=== PATIENT | female | born 1930 | race Caucasian/White ===

== ENCOUNTER → 2017-03-09 17:00 | Outpatient (CLI) | payer MEDICARE, BC | END | disposition home or self-care (01) | LOC: D.MAMMO 09:30 | DX: Z12.31 Encounter for screening mammogram for malignant neoplasm of breast (principal) ==

== ENCOUNTER → 2018-03-22 10:40 | Outpatient (CLI) | payer MEDICARE, BC | END | disposition home or self-care (01) | LOC: D.MAMMO 10:40 | DX: Z12.31 Encounter for screening mammogram for malignant neoplasm of breast (principal) ==

== ENCOUNTER 2018-05-16 08:21 | Inpatient (IN) | payer MEDICARE, BC ==
[~2018-05-16] VITALS: Ht 160 cm; Wt 52.2 kg
--- NOTE | ~2018-05-16 | OP ---
PATIENT NAME: GLORIA HARVEY MEDICAL RECORD: [id number] :34 LOCATION:[id number] ADMISSION DATE:05/16/18 SURGEON: MISSAEL ESPARZA MD DATE OF OPERATION: 05/17/2018 PREOPERATIVE DIAGNOSES: 1. Comminuted distal radius fracture of the right wrist. 2. Acute carpal tunnel syndrome. POSTOPERATIVE DIAGNOSES: 1. Comminuted distal radius fracture of the right wrist. 2. Acute carpal tunnel syndrome. PROCEDURES: Open reduction internal fixation of comminuted distal radius fracture of the right wrist and carpal tunnel release. FUSING FURNACE LOADER: MIKEY Garcia INTRAOPERATIVE COMPLICATIONS: None. SUMMARY OF PATHOLOGIC FINDINGS: Consistent with preoperative diagnosis, the patient had comminuted distal radius fracture. IMPLANTS USED: [place] VariAx short distal radius plate. OPERATIVE SUMMARY IN DETAIL: After obtaining the appropriate preoperative orthopedic surgery consent as well as anesthetic consultation, evaluation, and clearance, the patient was brought to the operating room and placed on the operating table in supine position. After general laryngeal mask airway was administered, tourniquet was placed on the proximal aspect of the right upper extremity. Right upper extremity was then prepped and draped in routine sterile fashion. Reduction maneuver was performed and seen on fluoroscopy to be adequate. The arm was elevated and exsanguinated and tourniquet was inflated to 250 mmHg. The volar approach of Derrick was utilized into the carpal canal. The incision was taken down to the level of transverse carpal ligament, which was identified and incised. After completely releasing the transverse carpal ligament, the FCR was then utilized. Dissection was carried down to both side of the median nerve. The median nerve along with the flexor tendons of the wrist were retracted laterally. The muscle was gently peeled back off the fracture. Fracture was reduced as seen on fluoroscopy. The plate was introduced. The plate was provisionally pinned in the appropriate position with a combination of both locking and compression screws, utilized to stabilize the fracture. After all screws were put into place, final AP and lateral views were taken and submitted for radiologist review. The wound was copiously irrigated and closed with 2-0 Vicryl followed by 4-0 Prolene. Sterile dressings were applied. Tourniquet was deflated. A volar splint was applied. The patient was awakened and taken to recovery room in stable condition. All final needle and sponge counts were correct. TRANSINT:[id number] Voice Confirmation ID: [id number] DOCUMENT ID: [id number] OPERATIVE REPORT [id number] GLORIA HARVEY MD, MISSAEL WALLS at 1340 CC: [id number] DICTATION DATE: 05/17/18 164 DIRECTOR OF MATERNITY SERVICES: 05/17/18 194 ADM IN [place] [id number] [place] [address]
--- NOTE | ~2018-05-16 | DS ---
PATIENT:GLORIA HARVEY :34 MEDICAL RECORD: [id number] DISCHARGE SUMMARY ADMISSION DATE: 05/16/18 DISCHARGE DATE: 05/20/18 DATE OF ADMISSION: 05/16/2018 DATE OF DISCHARGE: 05/20/2018 CONDITION ON DISCHARGE: Stable. ADMITTING DIAGNOSES: Status post fall with superficial laceration right side of the face with multiple right-sided facial fractures, right radial fracture, hip pain, right shoulder pain. History of hypothyroidism, hyperlipidemia and history of anemia. DISCHARGE DIAGNOSES: Fractured lower end of the right radius, fracture of the skull and facial bones to the right side, zygomatic arch fracture, hypothyroidism, hyperlipidemia, hypertension. HOSPITAL COURSE: Ms. Harvey is an 87-year-old female who apparently was in her normal state of health until the a.m. on the morning of her fall. She stated that last thing she remembered her alarm had gone off at 6:15 that morning, she was preparing to go to [employer], next thing she noticed that she had extreme pain in the right hand as well as the right side of the face. She phoned her son who presented to the Emergency Room with the patient. PHYSICAL EXAMINATION: VITAL SIGNS: She was afebrile. Her vital signs were stable. GENERAL: She was alert. She was oriented times 3. HEENT: She had superficial laceration over the orbital rim of the right eye. Pupils were equal, round and reactive to light. Extraocular movements were intact. She had ecchymosis over the right forehead as well as the right cheek. Her nasal cavity, oral cavity, oropharynx were clear. HEENT was otherwise unremarkable. NECK: Supple. There is no adenopathy. HEART: Regular rate. LUNGS: Clear. EXTREMITIES: She had ecchymosis over the anterior portion of the right shoulder as well as mild displacement of the right wrist, hand safety patrol officer was 5/5. LABORATORY DATA: The patient had facial CT showing orbital floor fracture as well as a right lateral orbital wall fracture, fracture of the right zygomatic arch, fracture of the anterior and posterior wall of the maxillary sinus, right maxillary hemosinus. CT of the head showed no intracranial abnormality, frontal lobe atrophy was noted. Small vessel ischemia and periventricular white matter changes were present. Right hip showed no fracture. Right wrist showed a distal right radial fracture. The patient was admitted for pain control. Ear, nose and throat consult was obtained, but apparently the ear, nose and throat physician was on vacation. Orthopedic consultation was obtained. The patient did undergo open reduction internal fixation of comminuted distal radial fracture of the right wrist and carpal tunnel release. It was felt that the patient would need ear, nose and throat evaluation and so therefore on 05/20/2018, she was discharged. DISCHARGE SUMMARY REPORT [id number] GLORIA HARVEY DISCHARGE MEDICATIONS: She was discharged on Percocet 10/325 one every 4 hours p.r.n. severe pain, aspirin 81 mg once a day, ferrous sulfate 325 one p.o. every day, Xanax 0.5 mg p.o. b.i.d., Lasix 20 mg once a day, levothyroxine 50 mcg once a day, isosorbide mononitrate 30 mg daily, lovastatin 40 mg once a day, Restoril 15 mg p.o. at bedtime. DISCHARGE INSTRUCTIONS: The patient was discharged to see Dr. RANJEET Hernandez on the at 9:30, [address] [facility], [address]. She would follow up with me in 10-14 days. She would call for followup with Dr. Bailey regarding her open reduction internal fixation of the wrist fracture. Her activities were ad verito. It was felt that the patient would need correction/rehab placement. TRANSINT:[id number] Voice Confirmation ID: [id number] DOCUMENT ID: [id number] MISSAEL BARRIOS MD at 1414 CC: [id number] DICTATION DATE: 06/13/18 141 BURRING WHEEL OPERATOR: 06/14/18 1209 DIS IN 05/20/18 [address] [address] [place] [address]
--- NOTE | ~2018-05-16 | HP ---
PATIENT: GLORIA HARVEY MEDICAL RECORD: [id number] ACCOUNT: [id number] LOCATION:D.[facility] : 34 ADMISSION DATE: 05/16/18 HISTORY AND PHYSICAL EXAMINATION DATE OF ADMISSION: 05/16/2018. CHIEF COMPLAINT: Facial pain. HISTORY OF PRESENT ILLNESS: The patient is an 87-year-old female who apparently was in her normal state of health until this a.m., apparently she states the last thing she remembers is that her alarm had gone off at 06:15. She was preparing to go to [employer], next thing she noticed she was having extreme pain in her hands as well as right side of her face. She did phone her son who presented the patient to the Emergency Room for evaluation. PAST MEDICAL HISTORY: Significant that she has had history of hypothyroidism, vitamin D deficiency, hyperlipidemia, history of anemia, chronic back pain. The patient is a . She has had breast surgery, appendectomy, back surgeries on 3 occasions, hysterectomy. FAMILY HISTORY: Sister has hypertension. Parents history is unobtainable. ALLERGIES: No known drug allergies. MEDICATIONS: Include alprazolam 0.5 one p.o. b.i.d., aspirin 81 mg once a day, ferrous sulfate 325 one p.o. b.i.d., Lasix 20 mg 1 p.o. every day. She is on [place] 10/325 one every 6 hours p.r.n. severe low back pain, isosorbide mononitrate ER 30 mg 1 p.o. every day, lovastatin 40 mg once a day, Mirapex 0.125 p.o. at bedtime, Premarin 0.625 applied intravaginally twice a week, Synthroid 50 mcg once a day, Restoril 15 mg p.o. at bedtime p.r.n. insomnia, vitamin D3 2000 international units daily. SOCIAL HISTORY: The patient is retired banker. She educated through the 12th grade. She is , does live alone. She denies any ethanol or tobacco use or abuse. REVIEW OF SYSTEMS: CONSTITUTIONAL: The patient does report having pain in the right side of her face. She also reports having pain in the right wrist, pain in right shoulder, pain in the right hip area, low back pain. GENERAL: She is currently alert. She is oriented times 3. She is accompanied by her son. HEENT: Head, she does have superficial laceration over the orbital rim to the right. Eyes: Pupils are equal, round, and reactive to light. Her extraocular movements are intact. She does have ecchymoses over the right forehead as well as the right cheek. Her nasal cavity, oral cavity, oropharynx clear. NECK: Supple. There is no adenopathy. HEART: Has a regular rate. LUNGS: Clear. EXTREMITIES: The patient does have ecchymosis over the anterior portion of the right shoulder as well as mild displacement of the right wrist. Hand changeover operator strength is 5/5. CARDIOVASCULAR: Regular rate and rhythm without murmurs, gallops, or rubs. LUNGS: Clear. HISTORY AND PHYSICAL [id number] GLORIA HARVEY ABDOMEN: Soft, bowel sounds are positive. MUSCULOSKELETAL: The patient does have some pain on the right posterior buttocks. She is able to flex and extend the right leg. DIAGNOSTIC DATA: The patient had multiple radiology procedures performed. She had facial CT showing orbital floor as well as right lateral orbital wall fracture, fracture of the right zygomatic arch, fracture of the anterior and posterior green of the maxillary sinuses, and right maxillary hemosinus. CT of the head shows no acute intracranial abnormalities, frontal lobe atrophy is seen, small vessel ischemic and periventricular white matter changes are present. Right hip x-ray is showing no acute fractures. Right wrist shows a distal right radial fracture. Chest x-ray shows no cardiomegaly, no active infiltrates. LABORATORY DATA: White count 11.4, hemoglobin 11.6, hematocrit 35.5, and her platelets are 186. Her chemistries pending at the present time. Urinalysis was not obtained. ASSESSMENT: Status post fall with superficial laceration of the right side of the face with multiple right-sided facial fractures, right radial fracture, hip pain, right shoulder pain, history of hypothyroidism, hyperlipidemia, and history of anemia. PLAN: The patient will be admitted. She will be placed in a splint. Orthopedic consultation will be obtained. Also, the patient will be evaluated by ear, nose, and throat for possible surgical intervention. She has no problems with extraocular movements at the present time, visualization is normal. We will continue to evaluate this. TRANSINT:[id number] Voice Confirmation ID: [id number] DOCUMENT ID: [id number] MISSAEL BARRIOS MD at 1511 CC: [id number] DICTATION DATE: 05/16/18 1016 FARMWORKER: 05/16/18 1132 ADM IN [address] [id number] [place] [address]
[2018-05-16] MEDS ORDERED: BAYER CHEWABLE81 MG PO (08:30)
[2018-05-16] MEDS ORDERED: LEVOXYL50 MCG PO (08:31)
[2018-05-16] MEDS ORDERED: FUROSEMIDE20 MG PO (08:31)
[2018-05-16] MEDS ORDERED: FERROUS SULFAT325 MG PO (08:31)
[2018-05-16] MEDS ORDERED: XANAX0.5 MG PO (08:31)
[2018-05-16] MEDS ORDERED: LOVASTATIN40 MG PO (08:32)
[2018-05-16] MEDS ORDERED: RESTORIL15 MG PO (08:32)
[2018-05-16] MEDS ORDERED: ISOSORBIDE MONO30 M1 PO (08:32)
[2018-05-16] MEDS ORDERED: VITAMIN D31000 UNI2 PO (08:32)
[2018-05-16] MEDS ORDERED: NORCO 7.5/325 T1 TA1 PO (08:33)
[2018-05-16 09:50] LABS: BASOPHILS 0.3 % (0-2); EOSINOPHILS 2.5 % (0-7); HEMATOCRIT 35.5 % (36.0-48.0); HEMOGLOBIN 11.6 g/dL (12-16); IMMATURE GRANULOCYTES 0.5 % (0-5); LYMPHOCYTES 8.4 % (15-50); MCH 32.2 pg (26.0-34.0); MCHC 32.7 g/dL (31.0-37.0); MCV 98.6 fL (80.0-100.0); MEAN PLATELET VOLUME 8.7 fL (7.4-10.4); MONOCYTES 11.1 % (2-11); NEUTROPHILS 77.2 % (40-80); PLATELET COUNT 186 10x3/uL (130-400); RDW 12.3 % (11.5-14.5); WBC 11.4 10x3/uL (4.8-10.8)
[2018-05-16 10:32] LABS: ALKALINE PHOSPHATASE 62 U/L (46-116); ALT (SGPT) 31 U/L (10-68); BILIRUBIN - TOTAL 0.44 mg/dL (0.2-1.3); CALC OSMOLALITY 277 mosm/kg (275-300); CALCIUM 9.4 mg/dL (8.5-10.1); CHLORIDE - SERUM 99 mmol/L (98-107); CREATINE KINASE 123 UL (21-215); CREATININE - SERUM 1.4 mg/dL (0.6-1.3); GLUCOSE 129 mg/dL (74-106); LIPASE 209 U/L (73-393); POTASSIUM - SERUM 3.7 mmol/L (3.5-5.1); PRO BNP 131 pg/mL (0-450); PROTEIN - SERUM 7.8 g/dL (6.4-8.2); SODIUM 137 mmol/L (136-145); TROPONIN-I < 0.017 ng/mL (0.000-0.060); UREA NITROGEN 19 mg/dL (7-18); eGFR NON AFRICAN AMERICAN 38 mL/min (90-120)
[2018-05-16 14:56] LABS: APPEARANCE CLEAR (CLEAR); BACTERIA FEW /hpf (NONE SEEN); BILIRUBIN NEGATIVE (NEGATIVE); COLOR YELLOW (YELLOW); EPITHELIAL CELLS OCC /hpf (0-5); GLUCOSE NEGATIVE (NEGATIVE); KETONE SMALL mg/dL (NEGATIVE); NITRITE NEGATIVE (NEGATIVE); PH 6.5 (5.0-6.0); PROTEIN NEGATIVE (NEGATIVE); RED CELLS - URINE 0-5 /hpf (0-5); UROBILINOGEN NORMAL (NORMAL); WHITE CELLS - URINE 0-5 /hpf (0-5)
[2018-05-16 16:58] VITALS: BP 188/60
[2018-05-16 17:07] VITALS: BMI 20.4
[2018-05-16 21:39] VITALS: BP 138/60
[2018-05-16 23:42] VITALS: BP 132/68
[2018-05-17 04:10] VITALS: BP 149/58
[2018-05-17 04:37] LABS: BASOPHILS 0.3 % (0-2); EOSINOPHILS 8.7 % (0-7); HEMATOCRIT 32.7 % (36.0-48.0); HEMOGLOBIN 10.6 g/dL (12-16); IMMATURE GRANULOCYTES 0.3 % (0-5); LYMPHOCYTES 20.7 % (15-50); MCH 31.8 pg (26.0-34.0); MCHC 32.4 g/dL (31.0-37.0); MCV 98.2 fL (80.0-100.0); MEAN PLATELET VOLUME 8.8 fL (7.4-10.4); MONOCYTES 15.9 % (2-11); NEUTROPHILS 54.1 % (40-80); PLATELET COUNT 183 10x3/uL (130-400); RBC 3.33 10x6/uL (4.00-5.40); RDW 12.5 % (11.5-14.5)
[2018-05-17 04:38] LABS: WBC 7.2 10x3/uL (4.8-10.8)
[2018-05-17 04:52] LABS: ANION GAP 11.8 mmol/L (8-16); CALCIUM 9.2 mg/dL (8.5-10.1); CREATININE - SERUM 1.3 mg/dL (0.6-1.3); POTASSIUM - SERUM 3.8 mmol/L (3.5-5.1)
[2018-05-17 09:53] VITALS: BP 164/75
[2018-05-17 12:21] VITALS: Ht 160 cm; Wt 52.2 kg
[2018-05-17 12:40] VITALS: BP 130/78
[2018-05-17 18:13] VITALS: BP 159/53
[2018-05-17 23:26] VITALS: BP 111/46
[2018-05-18 03:56] VITALS: BP 151/61
[2018-05-18 04:31] LABS: BASOPHILS 0.1 % (0-2); EOSINOPHILS 0 % (0-7); HEMATOCRIT 34.2 % (36.0-48.0); HEMOGLOBIN 11.1 g/dL (12-16); IMMATURE GRANULOCYTES 0.3 % (0-5); LYMPHOCYTES 9.1 % (15-50); MCH 31.9 pg (26.0-34.0); MCHC 32.5 g/dL (31.0-37.0); MCV 98.3 fL (80.0-100.0); MONOCYTES 9.9 % (2-11); NEUTROPHILS 80.6 % (40-80); PLATELET COUNT 156 10x3/uL (130-400); RBC 3.48 10x6/uL (4.00-5.40); RDW 12.5 % (11.5-14.5); WBC 7.8 10x3/uL (4.8-10.8)
[2018-05-18 04:42] LABS: ANION GAP 11.8 mmol/L (8-16); CALCIUM 8.9 mg/dL (8.5-10.1); CARBON DIOXIDE 26.1 mmol/L (21.0-32.0); CREATININE - SERUM 1.4 mg/dL (0.6-1.3); POTASSIUM - SERUM 3.9 mmol/L (3.5-5.1)
[2018-05-18 08:37] VITALS: BP 129/66
[2018-05-18 12:45] VITALS: BP 150/58
[2018-05-18 16:43] VITALS: BP 154/46
[2018-05-18 19:51] VITALS: BP 101/52
[2018-05-19 00:10] VITALS: BP 128/53
[2018-05-19 04:40] LABS: HEMATOCRIT 27.7 % (36.0-48.0); HEMOGLOBIN 9.2 g/dL (12-16)
[2018-05-19 04:45] VITALS: BP 130/51
[2018-05-19 08:17] VITALS: BP 155/77
[2018-05-19 11:47] VITALS: BP 143/56
[2018-05-19 15:41] VITALS: BP 141/67
[2018-05-19 21:58] VITALS: BP 169/67
[2018-05-20 00:27] VITALS: BP 104/59
[2018-05-20 04:48] LABS: HEMATOCRIT 30.3 % (36.0-48.0); HEMOGLOBIN 9.8 g/dL (12-16)
[2018-05-20 05:39] VITALS: BP 168/70
[2018-05-20] MEDS ORDERED: PERCOCET 10/3251 TA1 PO (07:49)
== END 2018-05-20 08:01 | DRG 511 ==
LOC: D.ER 08:21 → D.EDHOLD 09:48 → D.MS 09:48
PROVIDERS: Family Medicine; Orthopaedic Surgery
PROC: 0PSH04Z Reposition Right Radius with Internal Fixation Device, Open Approach (ICD-10-PCS; principal; 2018-05-20)
PROC: 01N50ZZ Release Median Nerve, Open Approach (ICD-10-PCS; 2018-05-20)
DX: S52.501A Unspecified fracture of the lower end of right radius, initial encounter for closed fracture (principal); S02.81XA Fracture of other specified skull and facial bones, right side, initial encounter for closed fracture; S02.40EA Zygomatic fracture, right side, initial encounter for closed fracture; W19.XXXA Unspecified fall, initial encounter; G56.01 Carpal tunnel syndrome, right upper limb; R53.1 Weakness; E03.9 Hypothyroidism, unspecified; E78.5 Hyperlipidemia, unspecified; I10 Essential (primary) hypertension

== ENCOUNTER 2019-04-04 08:00 | Outpatient (CLI) | payer MEDICARE, BC ==
[2018-05-17 12:21] VITALS: BMI 20.3
[~2019-04-04 08:00] MED LIST: BAYER CHEWABLE81 MG PO; FERROUS SULFAT325 MG PO; FUROSEMIDE20 MG PO; ISOSORBIDE MONO30 M1 PO; LEVOXYL50 MCG PO; LOVASTATIN40 MG PO; NORCO 7.5/325 T1 TA1 PO; PERCOCET 10/3251 TA1 PO; RESTORIL15 MG PO; VITAMIN D31000 UNI2 PO; XANAX0.5 MG PO
== END 2019-04-04 09:00 | disposition home or self-care (01) ==
LOC: D.MAMMO 08:00
PROVIDERS: ATTEND Family Medicine
DX: Z12.31 Encounter for screening mammogram for malignant neoplasm of breast (principal)

== ENCOUNTER 2021-01-09 10:45 | Outpatient (CLI) | payer MEDICARE, BC ==
[2018-05-17 12:21] VITALS: BMI 20.3
== END 2021-01-09 11:15 | disposition home or self-care (01) ==
LOC: D.MAMMO 10:45
PROVIDERS: ATTEND Family Medicine
DX: Z12.31 Encounter for screening mammogram for malignant neoplasm of breast (principal)